=== PATIENT | female | born 1965 | race American Indian/Alaskan Native ===

== ENCOUNTER 2016-07-13 23:25 | Emergency (ER) | payer OTHER ==
[2016-07-14 01:51] VITALS: BP 133/73
== END 2016-07-14 05:26 | disposition left against medical advice (07) ==
LOC: ED 23:25
DX: S61.250A Open bite of right index finger without damage to nail, initial encounter (principal); Z53.21 Procedure and treatment not carried out due to patient leaving prior to being seen by health care provider; W54.0XXA Bitten by dog, initial encounter; Y93.9 Activity, unspecified; Y92.9 Unspecified place or not applicable; Y99.9 Unspecified external cause status

== ENCOUNTER 2019-05-01 11:22 | Outpatient (CLI) | payer OTHER ==
--- NOTE | 2019-05-01 15:19 | Mammography Report ---
DIGITAL SCREENING MAMMOGRAM WITH CAD, 05/01/2019 INDICATION: Routine screening mammography. TECHNIQUE: Digital bilateral 2D mammography was obtained in the craniocaudal and mediolateral obliq ue projections. This examination was interpreted with the benefit of Computer-Aided Detection analysi s. COMPARISON: None available. However, she indicated that she had a prior mammogram at [facility]. FINDINGS: Breast Density: The breasts are heterogeneously dense, which may obscure small masses. Bilateral parenchymal asymmetries require comparison with a prior mammogram or additional imaging. No architectural distortion or suspicious calcifications. IMPRESSION: Comparison with the previous mammogram is recommended. We will attempt to obtain a prior mammogram for comparison. If we do not obtain a prior mammogram within 30 days, a revised report will be issued recommending a recall for additional imaging. Please be advised that the patient should no t schedule an appointment for return until adequate time (at least 2 weeks) has passed for us to obta in the prior mammogram. Follow up recommendation: Obtain prior study for comparison Category 0: Incomplete. Needs additional imaging evaluation and/or prior mammograms for comparison. A "normal" or negative report should not discourage follow up or biopsy of a clinically significant f inding. A written summary of these findings will be mailed to the patient. The patient will be entered into a mammography reporting system which will generate a reminder letter for the patient's next appointmen t at the appropriate interval. The [employer] recommends yearly mammograms starting at age 40 and continuing as l trent as a woman is in good health. Breast MRI is recommended for women with an approximate 20-25% or greater lifetime risk of breast cancer, including women with a strong family history of breast or ova yolanda cancer or who have been treated for Hodgkin's disease. Signer Name: Sudheer Valadez MD Signed: 05/01/2019 3:15 PM Workstation Name: [id number]
== END 2019-05-01 11:23 | disposition home or self-care (01) ==
LOC: MAMMO 11:22
PROVIDERS: ATTEND Family Medicine
DX: Z12.31 Encounter for screening mammogram for malignant neoplasm of breast (principal)
CPT/HCPCS: 77067